=== PATIENT | female | born 1985 | race Caucasian/White ===

== ENCOUNTER → 2023-04-20 08:49 | Outpatient (CLI) | payer BC, SELFPAY ==
--- NOTE | ~2023-04-20 | MMUS_ITS ---
EXAMINATION: MM diagnostic dio BI w leanne, US breast BI complete HISTORY: Palpable breast lumps with pain. TECHNIQUE: Additional 3-D tomosynthesis images of the breasts were performed and synthetic 2-D images were generated. CAD analysis was submitted and interpreted. High resolution bilateral complete breas t ultrasound was performed. COMPARISON: No prior studies for comparison. BREAST PARENCHYMAL COMPOSITION: BREAST PARENCHYMAL COMPOSITION: There are scattered areas of fibroglandular density. FINDINGS: MAMMOGRAPHIC FINDINGS: There are scattered likely benign bilateral breast calcifications. There are bilateral breast asymmet michelle, although no discrete mass is identified. No suspicious architectural distortion. ULTRASOUND: Complete bilateral US of all 4 quadrants of the breasts and retroareolar region was reviewed. Normal heterogeneous echotexture in both breasts without discrete solid or cystic mass. IMPRESSION: 1. Probable benign bilateral breast asymmetries and calcifications. No sonographic correlate. 2. Recommend 6 month follow-up diagnostic bilateral mammogram BI-RADS category 3, probably benign findings. Reviewed, dictated and finalized at location A. GROUND HAND IMPRESSION: 1. Probable benign bilateral breast asymmetries and calcifications. No sonograp hic correlate. 2. Recommend 6 month follow-up diagnostic bilateral mammogram BI-RADS category 3, probably benign findings.
== END ==
PROVIDERS: PCP Obstetrics & Gynecology; Visit Provider Physician Assistant
DX: N64.4 Mastodynia (principal); R92.8 Other abnormal and inconclusive findings on diagnostic imaging of breast
CPT/HCPCS: 76641; 77062; 77066; G0279

== ENCOUNTER 2023-11-25 08:00 | Outpatient (CLI) | payer BC, SELFPAY ==
--- NOTE | ~2023-11-25 | MMUS_ITS ---
EXAMINATION: MM diagnostic dio BI w leanne, US breast LT limited HISTORY: Left breast is 6 month follow-up left breast asymmetries TECHNIQUE: Additional 3-D tomosynthesis images of the left breast were performed and synthetic 2-D im ages were generated. CAD analysis was submitted and interpreted. High resolution Limited left breast ultrasound was performed. COMPARISON: 04/20/2023 BREAST PARENCHYMAL COMPOSITION: Not dense: There are scattered areas of fibroglandular density. FINDINGS: MAMMOGRAPHIC FINDINGS: There are stable benign-appearing calcifications of the left breast. There is a persistent asymmetry in the lower inner quadrant of the left breast with spot views. This is not apparent on spot mediolat eral or CC views, likely superimposed fibroglandular tissue. There is no mammographic evidence for ma lignancy in the left breast. ULTRASOUND: Limited left breast ultrasound: At 7:00, 1 cm from the nipple, there is a small cluster of microcysts measuring 6 mm. No other masses are identified. No definite corresponding abnormality to the area of mammographic asymmetry. IMPRESSION: 1. Probable benign focal left breast asymmetry. 2. Recommend 6 month follow-up diagnostic left mammogram. BI-RADS category 3, probably benign findings. Reviewed, dictated and finalized at location B. IMPRESSION: 1. Probable benign focal left breast asymmetry. 2. Recommend 6 month follow-up diagnostic left mammogram. BI-RADS category 3, probably benign findings.
== END 2023-11-25 08:01 ==
PROVIDERS: PCP Obstetrics & Gynecology; Visit Provider Physician Assistant
DX: R92.8 Other abnormal and inconclusive findings on diagnostic imaging of breast (principal)
CPT/HCPCS: 76642; 77062; 77066; G0279

== ENCOUNTER 2024-06-16 08:05 | Outpatient (CLI) | payer BC, SELFPAY ==
--- NOTE | ~2024-06-16 | MMUS_ITS ---
EXAMINATION: MM diagnostic dio LT w leanne, US breast LT limited HISTORY: 6 month follow-up of left breast microcysts TECHNIQUE: 3-D tomosynthesis images of the left breast were performed and synthetic 2-D images were g enerated. CAD analysis was submitted and interpreted. High resolution limited left breast ultrasound was performed. COMPARISON: 11/25/2023 BREAST PARENCHYMAL COMPOSITION:Not Dense. There are scattered areas of fibroglandular density. FINDINGS: MAMMOGRAPHIC FINDINGS: The asymmetry seen in the inner left breast on prior exam is less apparent on current exam. No new pa renchymal abnormalities seen. No suspicious microcalcification. ULTRASOUND: No sonographic abnormality seen at the 7:00 position left breast, 1 cm from the nipple. Previously no tru atelectasis have resolved. IMPRESSION: Interval resolution of cluster of microcysts in the left breast since prior exam. No evidence for ma lignancy. Return to regular screening mammography advised. BI-RADS Category 1: Negative Reviewed, dictated and finalized at location . L DESIGN TECHNICIAN IMPRESSION: Interval resolution of cluster of microcysts in the left breast since prior ex am. No evidence for malignancy. Return to regular screening mammography advised . BI-RADS Category 1: Negative
== END 2024-06-16 08:06 | disposition home or self-care (01) ==
PROVIDERS: PCP Physician Assistant; Visit Provider Physician Assistant
DX: R92.8 Other abnormal and inconclusive findings on diagnostic imaging of breast (principal)
CPT/HCPCS: 76642; 77061; 77065; G0279